=== PATIENT | female | born 1960 | race Caucasian/White ===

== ENCOUNTER 2017-02-01 15:44 | Emergency (ER) | payer OTHER ==
--- NOTE | ~2017-02-01 | EKG ---
PATIENT: AMADOR KANG UNIT #: [id number] Ventricular Rate: 87 BPM Atrial Rate: 87 BPM P-R Interval: 154 ms QRS Duration: 86 ms Q-T Interval: 362 ms QTC Calculation(Bezet): 435 ms P Gilliam: 67 degrees Calculated R Gilliam: 14 degrees Calculated T Gilliam: 56 degrees Diagnosis Line: Normal sinus rhythm Diagnosis Line: Normal ECG Diagnosis Line: No previous ECGs available Diagnosis Line: Confirmed by RADHA CARMICHAEL MD ([id number]) on Diagnosis Line: 02/02/2017 2:42:42 PM INTERPRETING MD: JANY HUGGINS
--- NOTE | ~2017-02-01 | CT71 ---
[facility] A Service of [facility] RADIOLOGY TEXT RESULTS PATIENT: AMADOR KANG LOCATION: SED : 56 UNIT #: [id number] AGE: [address]: Mica Tsai MD SEX: F ORDER DR: [id number] [id number] MR#: [id number] Acc #: [id number] NAME: AMADOR KANG : 1960 SEX: F STUDY DATE/TIME: 02/01/2017 16:29 UNIT: SED ROOM: STUDY DESCRIPTION: CT Head Wo Contrast Attending Physician: Mica Tsai M.D. Ordering Physician: Mica Tsai M.D. Primary Care Physician: [facility] MEDICAL IMAGING REPORT This report is preliminary unless electronic signature is present. EXAM CT head without contrast DATE: 02/01/2017 at 16:29 HISTORY 56-year-old female syncopal episode last night. Additional history of hypotension. COMPARISON None. This CT exam was performed with one or more of the following radiation dose reduction techniques: automatic exposure control, adjustment of mA and/or kV according to patient size, and iterative reconstruction. FINDINGS Axial noncontrast images were obtained from the skull base to the vertex. Ventricular size and configuration are normal. There is no evidence of acute infarct or hemorrhage. There are no extraaxial fluid collections. No mass lesion or mass effect is seen. There are no skull fractures. IMPRESSION Normal noncontrast head CT. Dictated by... Ruthy Torrez M.D. THIS IS AN ELECTRONICALLY VERIFIED REPORT Ruthy Torrez M.D. at 02/02/2017 8:56 AM [facility] A Service [facility] RADIOLOGY TEXT RESULTS PATIENT: AMADOR KANG LOCATION: SED : 56 UNIT #: [id number] AGE: [address]: Mica Tsai MD SEX: F ORDER DR: FAVIAN/nino TD: 02/02/2017 03:05 JOB #: [id number] MEDICAL IMAGING REPORT Page 1 of 1
[~2017-02-01 15:44] MED LIST: ANTI-FUNGAL15 GM TOP; ATARAX PO; BACTRIM DS TABL1 TA1 PO; CELEXA PO; ELIMITE60 GM TOP; KEFLEX PO; LEVOXYL0.137 MG PO; LISINOPRIL-HCTZ1 T18 PO; LOTRISONE CREAM45 GM TOP; NORVASC PO; NORVASC10 MG PO; SYNTHROID125 PO
[2017-02-01] MEDS ORDERED: PRILOSEC (15:48)
[2017-02-01] MEDS ORDERED: ZESTORETIC 20-1 EAC1 (15:48)
[2017-02-01 16:27] LABS: BASOPHIL% 0.4 % (0-2.5); EOSINOPHIL# 0.1 X10e3 (0-0.7); EOSINOPHIL% 0.8 % (0.0-7.0); HEMATOCRIT 34.4 % (35.0-45.0); LYMPHOCYTE# 1.5 X10e3 (1.0-3.5); LYMPHOCYTE% 17.7 % (17.0-45.0); MEAN CELL VOLUME 85.5 FL (83-96); MEAN CORPUSCULAR HEMOGLOBIN 29.8 PG (28-34); MEAN CORPUSCULAR HGB CONC 34.9 g/dL (30-36); MEAN PLATELET VOLUME 8.2 FL (6.5-11.5); MONOCYTE# 0.6 X10e3 (0-1.0); MONOCYTE% 6.8 % (3.0-12.0); NEUTROPHIL# 6.2 X10e3 (1.5-7.1); NEUTROPHIL% 74.3 % (40-75); PLATELET COUNT 266 X10e3 (140-420); RED BLOOD COUNT 4.02 X10e (3.90-5.30); RED CELL DISTRIBUTION WIDTH 13.5 % (11.0-15.5); WHITE BLOOD COUNT 8.4 X10e3 (4.0-10.5)
[2017-02-01 16:33] LABS: DIFF IND NO
[2017-02-01 16:35] LABS: POC - CKMB 1.2 ng/mL (0.0-7.9); POC - MYOGLOBIN 47.3 ng/mL (0.0-169.0)
[2017-02-01 16:36] LABS: POC - TROPONIN <0.05 ng/mL (<=0.05)
[2017-02-01 16:39] LABS: URINE SOURCE CLEAN CATCH
[2017-02-01 16:41] LABS: URINE APPEARANCE CLEAR; URINE BILIRUBIN NEG (NEG); URINE BLOOD 2+ (NEG); URINE COLOR YELLOW; URINE GLUCOSE NEG (NORM); URINE KETONE NEG (NEG); URINE LEUKOCYTE ESTERASE 3+ (NEG); URINE NITRATE NEG (NEG); URINE PH 5.5 (5-8); URINE PROTEIN NEG (NEG); URINE SPECIFIC GRAVITY <=1.005 (1.003-1.035); URINE UROBILINOGEN 0.2 MG/DL (NORM)
[2017-02-01 16:47] LABS: MICRO INDICATED? YES
[2017-02-01 16:52] LABS: CALCIUM SERUM 8.9 mg/dL (8.4-10.2); CREATININE SERUM 0.6 mg/dL (0.6-1.4); GLOM FILT RATE Estimated 100.5 mL/min (>60); POTASSIUM 3.3 mmol/L (3.5-5.1)
[2017-02-01 17:02] LABS: CULTURE INDICATED? YES; URINE BACTERIA 1+ (NEG); URINE SQUAMOUS EPITHELIAL CELL OCCAS /[HPF]; URINE WBC 100-200 /[HPF] (0-5)
== END 2017-02-01 17:52 | disposition home or self-care (01) ==
LOC: SED 15:44
PROVIDERS: Student in an Organized Health Care Education/Training Program
DX: N39.0 Urinary tract infection, site not specified (principal); E86.0 Dehydration; R55 Syncope and collapse; K21.9 Gastro-esophageal reflux disease without esophagitis; I10 Essential (primary) hypertension; Z90.49 Acquired absence of other specified parts of digestive tract; R73.9 Hyperglycemia, unspecified
CPT/HCPCS: 36415; 70450; 80048; 81003; 82553; 83874; 84484; 85025; 87086; 87088; 87186; 93005; 96361; 96374; 99284; J0696